=== PATIENT | female | born 1970 | race Caucasian/White ===

== ENCOUNTER 2019-09-28 10:49 | Outpatient (CLI) | payer OTHER, SELFPAY ==
--- NOTE | ~2019-09-28 | MM_ITS ---
EXAMINATION: MM screening [facility] w alfred HISTORY: Screening mammogram TECHNIQUE: Craniocaudal and mediolateral oblique 3-D tomosynthesis images were obtained and synthetic 2-D images were generated. CAD analysis was submitted and interpreted. COMPARISON: 09/14/2018, 09/11/2017, 09/02/2016 bilateral digital screening mammogram examinations BREAST PARENCHYMAL COMPOSITION: There are scattered areas of fibroglandular density. FINDINGS: There are some focal calcifications in the anterior upper outer right breast. Diagnostic ri ght mammogram with magnification views is recommended. Otherwise there is no evidence of suspicious mass, calcification, or architectural distortion to sugg est malignancy in either breast. There has been no suspicious interval change. IMPRESSION: 1. Focal microcalcifications in the anterior upper outer right breast; diagnostic right mammogram wit h magnification views is recommended 2. Recommend routine diagnostic right mammogram BI-RADS Category 0: Incomplete: Needs additional imaging evaluation. Reviewed, dictated and finalized at location A. IMPRESSION: 1. Focal microcalcifications in the anterior upper outer right breast; diagnost ic right mammogram with magnification views is recommended 2. Recommend routine diagnostic right mammogram BI-RADS Category 0: Incomplete: Needs additional imaging evaluation.
== END 2019-09-28 10:50 | disposition home or self-care (01) ==
LOC: ANHIMG 10:54
PROVIDERS: PCP Family Medicine Adolescent Medicine; Visit Provider Obstetrics & Gynecology
DX: Z12.31 Encounter for screening mammogram for malignant neoplasm of breast (principal)
CPT/HCPCS: 77063; 77067

== ENCOUNTER 2019-10-27 11:51 | Outpatient (CLI) | payer OTHER, SELFPAY ==
--- NOTE | ~2019-10-27 | MM_ITS ---
EXAMINATION: MM diagnostic mammo unilat RT HISTORY: Follow-up right breast calcifications TECHNIQUE: Additional 3-D tomosynthesis images of the right breast were performed and synthetic 2-D i mages were generated. CAD analysis was submitted and interpreted. COMPARISON: 09/28/2019 BREAST PARENCHYMAL COMPOSITION: Breast composed of scattered areas of fibroglandular density FINDINGS: There are vascular calcifications in the upper outer quadrant of the right breast correspon ding to the calcification seen on recent screening mammogram. There are no suspicious masses, calcifi cations or architectural distortion to suggest malignancy. IMPRESSION: 1. No mammographic evidence for malignancy in the right breast. Benign vascular calcifications. 2. Routine yearly screening mammogram and regular clinical breast examination are recommended. BI-RADS Category 2: Benign finding(s). Reviewed, dictated and finalized at location A. IMPRESSION: 1. No mammographic evidence for malignancy in the right breast. Benign vascular calcifications. 2. Routine yearly screening mammogram and regular clinical breast examination a re recommended. BI-RADS Category 2: Benign finding(s).
== END 2019-10-27 11:52 | disposition home or self-care (01) ==
LOC: ANHIMG 11:52
PROVIDERS: PCP Family Medicine Adolescent Medicine; Visit Provider Obstetrics & Gynecology
DX: R92.0 Mammographic microcalcification found on diagnostic imaging of breast (principal)
CPT/HCPCS: 77065

== ENCOUNTER 2021-01-29 14:10 | Outpatient (CLI) | payer OTHER, SELFPAY ==
--- NOTE | ~2021-01-29 | CT_ITS ---
EXAMINATION: CT abdomen pelvis w con INDICATION: Substernal and epigastric abdominal pain TECHNIQUE: Computed tomographic images of the abdomen and pelvis were obtained after the administrati on of 100 cc of Omnipaque 350 intravenous contrast. The dose-length product (DLP) was 859.15 mGy-cm. Automated exposure control and iterative reconstruction technique were employed. COMPARISON: None available FINDINGS: Minimal dependent atelectasis is present in the lung bases. The heart size is normal. There is a 3.5 cm lesion with interrupted peripheral nodular enhancement in the left hepatic lobe, consist ent with a hemangioma. The spleen, pancreas, gallbladder, and adrenal glands are normal. The kidneys are unremarkable. No pathologically enlarged abdominal or pelvic lymph nodes are identified. There is no free intraperitoneal gas or evidence of bowel obstruction. The appendix is normal. A moderate vol ume of colonic stool is present. There is moderate lumbar spondylosis at L5-S1. IMPRESSION: 1. No CT correlate for the patient's symptoms. Reviewed, dictated and finalized at location A.
== END 2021-01-29 14:11 | disposition home or self-care (01) ==
LOC: ANHIMG 14:11
PROVIDERS: PCP Family Medicine Adolescent Medicine; Visit Provider Family Medicine
DX: R07.89 Other chest pain (principal); M47.817 Spondylosis without myelopathy or radiculopathy, lumbosacral region
CPT/HCPCS: 74177; Q9967

== ENCOUNTER 2021-06-20 16:16 | Outpatient (CLI) | payer OTHER, SELFPAY ==
--- NOTE | ~2021-06-20 | MM_ITS ---
EXAMINATION: MM screening [facility] BI w alfred HISTORY: Screening mammogram TECHNIQUE: Craniocaudal and mediolateral oblique 3-D tomosynthesis images were obtained and synthetic 2-D images were generated. CAD analysis was submitted and interpreted. COMPARISON: 10/27/2019, 09/28/2019, 09/14/2018 BREAST PARENCHYMAL COMPOSITION: There are scattered areas of fibroglandular density. FINDINGS: There is no suspicious mass, calcification, or architectural distortion to suggest malignan cy in either breast. There has been no suspicious interval change. IMPRESSION: 1. No mammographic evidence of malignancy. 2. Recommend routine screening mammography in one year. BI-RADS Category 1: Negative Reviewed, dictated and finalized at location A.
== END 2021-06-20 16:17 | disposition home or self-care (01) ==
LOC: ANHIMG 16:17
PROVIDERS: PCP Family Medicine Adolescent Medicine; Visit Provider Obstetrics & Gynecology
DX: Z12.31 Encounter for screening mammogram for malignant neoplasm of breast (principal)
CPT/HCPCS: 77063; 77067

== ENCOUNTER 2023-10-20 15:47 | Outpatient (CLI) | payer OTHER, SELFPAY ==
--- NOTE | ~2023-10-20 | MM_ITS ---
EXAMINATION: MM screening [facility] w alfred HISTORY: Screening TECHNIQUE: Craniocaudal and mediolateral oblique 3-D tomosynthesis images were obtained and synthetic 2-D images were generated. CAD analysis was submitted and interpreted. COMPARISON: Comparison to multiple prior studies sequentially, with oldest reviewed study dated 09/02. BREAST PARENCHYMAL COMPOSITION: Not dense: There are scattered areas of fibroglandular density. FINDINGS: There is no evidence of suspicious mass, calcification, or architectural distortion to sugg est malignancy in either breast. There has been no suspicious interval change. IMPRESSION: 1. No mammographic evidence of malignancy. 2. Recommend routine screening mammography in one year. BI-RADS Category 1: Negative Reviewed, dictated and finalized at location B.
== END 2023-10-20 15:48 | disposition home or self-care (01) ==
LOC: ANHIMG 15:48
PROVIDERS: PCP Family Medicine Adolescent Medicine; Visit Provider Obstetrics & Gynecology
DX: Z12.31 Encounter for screening mammogram for malignant neoplasm of breast (principal)
CPT/HCPCS: 77063; 77067

== ENCOUNTER 2024-07-21 13:53 | Outpatient (CLI) | payer OTHER, SELFPAY ==
--- NOTE | ~2024-07-21 | US_ITS ---
Renal-Bladder ultrasound Clinical History: Elevated serum creatinine Technique: Real-time sonographic imaging of the kidneys and urinary bladder was performed. Findings: The right kidney measures 9.8 cm in length and the left kidney measures 10.5 cm. There is n o hydronephrosis or renal calculus identified. Renal cortical echogenicity is within normal limits. N o renal mass lesion is identified. The urinary bladder is moderately distended at the time of this exam. No intraluminal echoes are iden tified. No abnormal wall thickening is seen. Impression: Unremarkable ultrasound of the kidneys and urinary bladder. Reviewed, dictated and finalized at location . Impression: Unremarkable ultrasound of the kidneys and urinary bladder.
== END 2024-07-21 13:54 | disposition home or self-care (01) ==
LOC: MICIMG 13:53
PROVIDERS: PCP Family Medicine Adolescent Medicine; Visit Provider Family Medicine
DX: R79.89 Other specified abnormal findings of blood chemistry (principal)
CPT/HCPCS: 76770